=== PATIENT | female | born 1985 | race Caucasian/White ===

== ENCOUNTER 2019-10-31 23:18 | Emergency (ER) | payer OTHER ==
[~2019-10-31] VITALS: Ht 160 cm; Wt 63.5 kg
[2019-10-31] MEDS ORDERED: LAMICTAL100 MG PO (23:31)
[2019-10-31] MEDS ORDERED: BUSPAR30 MG PO (23:31)
[2019-10-31] MEDS ORDERED: ALPRAZOLAM 0.50.5 M1 PO (23:31)
[2019-10-31] MEDS ORDERED: ZYRTEC10 M2 PO (23:32)
[2019-11-01] MEDS ORDERED: NORCO 5-325 TA1 EAC2 PO (00:16)
[2019-11-01 00:34] VITALS: BP 110/62
== END 2019-11-01 00:34 | disposition home or self-care (01) ==
LOC: M.ERS 23:18
DX: S93.692A Other sprain of left foot, initial encounter (principal); Z88.0 Allergy status to penicillin; Z88.2 Allergy status to sulfonamides; W22.8XXA Striking against or struck by other objects, initial encounter; Y93.89 Activity, other specified; Y92.89 Other specified places as the place of occurrence of the external cause; Y99.8 Other external cause status

== ENCOUNTER 2020-04-29 19:27 | Emergency (ER) | payer OTHER ==
[~2020-04-29] VITALS: Ht 160 cm; Wt 61.2 kg
[~2020-04-29 19:27] MED LIST: ALPRAZOLAM 0.50.5 M1 PO; BUSPAR30 MG PO; LAMICTAL100 MG PO; NORCO 5-325 TA1 EAC2 PO; ZYRTEC10 M2 PO
[2020-04-29] MEDS ORDERED: VISTARIL50 MG PO (19:47)
[2020-04-29 20:46] LABS: URINE BLOOD 2+ (Negative); URINE CLARITY CLEAR; URINE COLOR YELLOW; URINE GLUCOSE-RANDOM NEGATIVE (Negative); URINE LEUKOCYTES-REFLEX NEGATIVE (Negative); URINE NITRITE-REFLEX NEGATIVE (Negative); URINE PROTEIN TRACE (Negative); URINE SPECIFIC GRAVITY >= 1.030 (1.005-1.030)
[2020-04-29 20:50] LABS: ICTOTEST (BILI CONFIRMATORY) Negative (Negative); URINE BILIRUBIN 1+ (Negative); URINE KETONES 3+ (Negative)
[2020-04-29 20:52] LABS: MUCUS None Seen strn/LPF (None Seen); SQUAMOUS >10 Many /LPF (0-3)
[2020-04-29 20:53] LABS: BACTERIA-REFLEX 1-9 Few /HPF (None Seen); CASTS None Seen /LPF (None Seen); CRYSTALS None Seen /LPF (None Seen); URINE RBC 3-10 Few /HPF (0-2); URINE WBC-REFLEX 0-5 Rare /HPF (0-5)
[2020-04-29 20:57] LABS: HEMATOCRIT 33.2 % (37.0-47.0); HEMOGLOBIN 10.5 gm/dL (12.0-15.0); MCH 19.9 pg (26.0-34.0); MCHC 31.6 g/dL (28.0-37.0); MCV 62.9 fL (80.0-100.0); MPV 7.6 fl. (7.2-11.1); RBC 5.28 mil/uL (4.20-5.00); RDW-CV 14.6 % (10.5-14.5)
[2020-04-29 21:05] LABS: CALCIUM 8.7 mg/dL (8.5-10.1)
[2020-04-29 21:08] LABS: POTASSIUM 2.9 mmol/L (3.5-5.1)
[2020-04-29 21:10] LABS: ALBUMIN 4.3 g/dL (3.4-5.0); TOTAL BILIRUBIN 0.6 mg/dL (<0.1-1.0)
[2020-04-29] MEDS ORDERED: FLOMAX0.4 MG PO ×2 (21:29)
[2020-04-29] MEDS ORDERED: NORCO5 PO (21:29)
[2020-04-29 22:33] VITALS: BP 102/49
[2020-04-30 00:16] LABS: AMP/METHAMP Negative (Negative); BARBITURATES Negative (Negative); BENZODIAZEPINES POSITIVE (Negative); COCAINE Negative (Negative); METHADONE Negative (Negative); OPIATES Negative (Negative); PCP Negative (Negative); THC Negative (Negative)
== END 2020-04-29 22:35 | disposition home or self-care (01) ==
LOC: M.ERS 19:27
PROVIDERS: Personal Emergency Response Attendant; Physician Assistant
DX: N20.0 Calculus of kidney (principal); R11.2 Nausea with vomiting, unspecified; R10.32 Left lower quadrant pain; Z88.0 Allergy status to penicillin; Z88.2 Allergy status to sulfonamides; Z79.899 Other long term (current) drug therapy

== ENCOUNTER 2020-05-01 14:54 | Emergency (ER) | payer OTHER ==
[~2020-05-01] VITALS: Ht 160 cm; Wt 61.2 kg
[~2020-05-01 14:54] MED LIST changes: +FLOMAX0.4 MG PO; +NORCO5 PO; +VISTARIL50 MG PO
[2020-05-01 15:18] LABS: URINE BILIRUBIN NEGATIVE (Negative); URINE BLOOD 1+ (Negative); URINE CLARITY CLEAR; URINE COLOR YELLOW; URINE GLUCOSE-RANDOM NEGATIVE (Negative); URINE KETONES NEGATIVE (Negative); URINE LEUKOCYTES-REFLEX NEGATIVE (Negative); URINE NITRITE-REFLEX NEGATIVE (Negative); URINE PROTEIN NEGATIVE (Negative); URINE SPECIFIC GRAVITY 1.025 (1.005-1.030); URINE UROBILINOGEN 0.2 E.U./dl (0.2-1.0)
[2020-05-01 15:19] LABS: ABSOLUTE EOSINOPHILS 0.1 thou/uL (0.0-0.7); ABSOLUTE LYMPHOCYTES 2.2 thou/uL (0.8-5.3); ABSOLUTE MONOCYTES 0.5 thou/uL (0.0-1.2); ABSOLUTE NEUTROPHILS 2.4 thou/uL (1.6-8.1); BASOPHILS 0.8 %; EOSINOPHILS 2.6 %; HEMOGLOBIN 10.4 gm/dL (12.0-15.0); LYMPHOCYTES 41.1 %; MCH 19.9 pg (26.0-34.0); MCHC 31.5 g/dL (28.0-37.0); MCV 63.3 fL (80.0-100.0); MONOCYTES 9.4 %; MPV 7.1 fl. (7.2-11.1); NUCLEATED RBCS 0 /100WBC; PLATELET COUNT* 289 thou/uL (150-400); POLYS 46.1 %; RBC 5.21 mil/uL (4.20-5.00); RDW-CV 14.5 % (10.5-14.5); WBC 5.2 thou/uL (4.0-11.0)
[2020-05-01 15:26] LABS: MUCUS 0-3 Light strn/LPF (None Seen); SQUAMOUS >10 Many /LPF (0-3)
[2020-05-01 15:27] LABS: HYALINE CASTS 0-3 Few /LPF (None Seen); URINE RBC 3-10 Few /HPF (0-2); URINE WBC-REFLEX 0-5 Rare /HPF (0-5)
[2020-05-01 15:27] LABS: CALCIUM 8.5 mg/dL (8.5-10.1); POTASSIUM 3.5 mmol/L (3.5-5.1)
[2020-05-01 15:28] LABS: CRYSTALS None Seen /LPF (None Seen)
[2020-05-01 15:31] LABS: TOTAL BILIRUBIN 0.3 mg/dL (<0.1-1.0); TOTAL PROTEIN 6.7 g/dL (6.4-8.2)
[2020-05-01 15:35] LABS: OVALOCYTES Occasional; TEARDROPS Occasional
[2020-05-01 15:36] LABS: HYPOCHROMASIA 3+; MICROCYTES 3+; PLATELET ESTIMATE ADEQUATE; TARGET CELLS Occasional
[2020-05-01] MEDS ORDERED: PERCOCET 5-3251 EACH PO (16:36)
[2020-05-01 16:43] VITALS: BP 104/66
== END 2020-05-01 16:44 | disposition home or self-care (01) ==
LOC: M.ERS 14:54
PROVIDERS: Physician Assistant
DX: N20.0 Calculus of kidney (principal); Z88.0 Allergy status to penicillin; Z88.2 Allergy status to sulfonamides